=== PATIENT | male | born 1965 | race Caucasian/White ===

== ENCOUNTER 2017-08-28 04:58 | Inpatient (IN) | payer MEDICAID, OTHER ==
[2017-08-28] MEDS: LORAZEPAM 2 MG INJ IV ×8 (05:32→23:38)
[2017-08-28 05:37] LABS: ADD MAN DIFF? NO
[2017-08-28 05:40] LABS: WHITE BLOOD COUNT 12.1 10^3/ul (4.8-10.8)
[2017-08-28 05:40] LABS: BASOPHIL # 0.1 10^3/ul (0.0-0.1); BASOPHILS % 0.7 % (0.0-2.0); EOSINOPHILS % 0.2 % (0.0-7.0); HEMOGLOBIN 10.8 g/dl (14.0-18.0); LYMPHOCYTES # 0.8 10^3/ul (0.8-2.9); LYMPHOCYTES % 6.9 % (15.0-51.0); MEAN CORPUSCULAR HEMOGLOBIN 25.1 pg (29.0-33.0); MEAN CORPUSCULAR HGB CONC 32.7 g/dl (32.0-37.0); MEAN CORPUSCULAR VOLUME 76.7 fl (82.0-101.0); MEAN PLATELET VOLUME 9.1 fl (7.4-10.4); MONOCYTE # 1.3 10^3/ul (0.3-0.9); MONOCYTES % 10.5 % (0.0-11.0); NEUTROPHIL # 9.8 10^3/ul (1.6-7.5); NEUTROPHILS % 81.2 % (39.0-77.0); PLATELET COUNT 341 10^3/UL (140-415); RED CELL DISTRIBUTION WIDTH 17.1 % (11.5-14.5)
[2017-08-28 05:43] LABS: INR 0.96; PROTIME 12.9 Sec (11.9-14.9)
[2017-08-28 05:46] LABS: ALANINE AMINOTRANSFERASE 38 IU/L (13-69); ALBUMIN 5.3 g/dl (3.3-4.9); ALBUMIN/GLOBULIN RATIO 1.35; ALKALINE PHOSPHATASE 110 IU/L (42-121); ANION GAP 33 (8-16); ASPARTATE AMINO TRANSFERASE 100 IU/L (15-46); BILIRUBIN,INDIRECT 1.1 mg/dl (0-1.1); BILIRUBIN,TOTAL 1.1 mg/dl (0.2-1.3); BLOOD UREA NITROGEN 10 mg/dl (7-20); CALCIUM 10.2 mg/dl (8.4-10.2); CARBON DIOXIDE 18 mmol/L (21-31); CHLORIDE 95 mmol/L (97-110); CREATININE 1.35 mg/dl (0.61-1.24); GLUCOSE 214 mg/dl (70-220); POTASSIUM 3.1 mmol/L (3.5-5.1); SODIUM 143 mmol/L (135-144); TOTAL PROTEIN 9.2 g/dl (6.1-8.1)
[2017-08-28 05:49] LABS: ACETAMINOPHEN < 10.0 ug/ml (10.0-30.0); ETHANOL < 10.0 mg/dl; SALICYLATE < 1.0 mg/dl (5.0-30.0)
[2017-08-28 05:54] LABS: PARTIAL THROMBOPLASTIN TIME 26.6 Sec (25.0-35.0)
[2017-08-28] MEDS: MAGNESIUM SULFATE 2 GM, MULTIVITAMINS 10 ML, THIAMINE 100 MG, FOLIC ACID 1 MG in SOD CH... IV (06:07)
[2017-08-28] MEDS: CHLORDIAZEPOXIDE 25 MG CAP PO ×2 (08:50→21:26)
[2017-08-28] MEDS ORDERED: ACETAMINOPHEN 325 MG TAB PO (11:00)
[2017-08-28] MEDS ORDERED: NACL 0.9% 3 ML SYG IV (11:00)
[2017-08-28] MEDS ORDERED: ONDANSETRON 4 MG INJ IV (11:00)
[2017-08-28 11:19] LABS: CREATINE KINASE 288 IU/L (23-200)
[2017-08-28 11:28] LABS: CK INDEX 1.1
[2017-08-28 11:29] LABS: CK-MB 3.25 ng/ml (0.0-2.4)
[2017-08-28 11:43] LABS: TROPONIN-I 0.316 ng/ml (0.00-0.12)
[2017-08-28 12:15] LABS: ADD UMIC YES; UR ASCORBIC ACID NEGATIVE (NEGATIVE); UR BILIRUBIN (Dip) NEGATIVE (NEGATIVE); UR BLOOD (Dip) 1+ mg/dL (NEGATIVE); UR CLARITY SLIGHTLY CLOUDY (CLEAR); UR COLOR YELLOW (YELLOW); UR GLUCOSE (Dip) 1+ mg/dL (NEGATIVE); UR KETONES (Dip) NEGATIVE (NEGATIVE); UR LEUKOCYTE ESTERASE (Dip) NEGATIVE Leu/ul (NEGATIVE); UR MUCUS FEW /HPF (NONE SEEN); UR NITRITE (Dip) NEGATIVE (NEGATIVE); UR RBC 1 /HPF (0-5); UR SPECIFIC GRAVITY (Dip) 1.011 (1.003-1.030); UR TOTAL PROTEIN (Dip) 1+ mg/dl (NEGATIVE); UR UROBILINOGEN (Dip) 1+ mg/dL (NEGATIVE); UR WBC 2 /HPF (0-5)
[2017-08-28 12:30] LABS: AMPHETAMINE/METHAMPHETAMINE Positive (NEGATIVE); BARBITURATES Negative (NEGATIVE); BENZODIAZEPINES Negative (NEGATIVE); CANNABINOIDS Negative (NEGATIVE); COCAINE Negative (NEGATIVE); OPIATES Negative (NEGATIVE)
[2017-08-28] MEDS: POTASSIUM CHLORIDE (SR) 10 MEQ TAB PO (13:46)
[2017-08-28 17:41] LABS: ALANINE AMINOTRANSFERASE 35 IU/L (13-69); ALBUMIN 4.2 g/dl (3.3-4.9); ALKALINE PHOSPHATASE 84 IU/L (42-121); ASPARTATE AMINO TRANSFERASE 76 IU/L (15-46); BILIRUBIN,INDIRECT 1.1 mg/dl (0-1.1); BILIRUBIN,TOTAL 1.1 mg/dl (0.2-1.3); TOTAL PROTEIN 7.4 g/dl (6.1-8.1)
[2017-08-28 17:44] LABS: ANION GAP 16 (8-16); BLOOD UREA NITROGEN 7 mg/dl (7-20); CALCIUM 8.9 mg/dl (8.4-10.2); CARBON DIOXIDE 25 mmol/L (21-31); CHLORIDE 102 mmol/L (97-110); CREATININE 0.72 mg/dl (0.61-1.24); GLUCOSE 96 mg/dl (70-220); MAGNESIUM 1.9 mg/dl (1.7-2.5); POTASSIUM 3.2 mmol/L (3.5-5.1); SODIUM 140 mmol/L (135-144)
[2017-08-28 17:54] LABS: TROPONIN-I 0.173 ng/ml (0.00-0.12)
[2017-08-28] MEDS: THIAMINE 100 MG TAB PO (21:00)
[2017-08-29] MEDS: HALOPERIDOL 5 MG INJ IM (00:17)
[2017-08-29] MEDS: LORAZEPAM 2 MG INJ IV (00:18)
[2017-08-29] MEDS: DIPHENHYDRAMINE 50 MG INJ IM (00:18)
[2017-08-29] MEDS ORDERED: LORAZEPAM 2 MG INJ IV (02:00)
[2017-08-29] MEDS: ENOXAPARIN 40 MG/0.4 ML SYG SC (09:23)
[2017-08-29] MEDS: THIAMINE 100 MG TAB PO ×3 (09:23→20:51)
[2017-08-29] MEDS: FOLIC ACID 1 MG TAB PO (09:23)
[2017-08-29 11:35] LABS: ADD MAN DIFF? NO
[2017-08-29 11:36] LABS: BASOPHIL # 0.1 10^3/ul (0.0-0.1); BASOPHILS % 1.2 % (0.0-2.0); EOSINOPHILS # 0.5 10^3/ul (0.0-0.5); EOSINOPHILS % 10.4 % (0.0-7.0); HEMATOCRIT 30.6 % (42.0-52.0); LYMPHOCYTES # 0.7 10^3/ul (0.8-2.9); LYMPHOCYTES % 14.1 % (15.0-51.0); MEAN CORPUSCULAR HEMOGLOBIN 25.3 pg (29.0-33.0); MEAN CORPUSCULAR HGB CONC 32.7 g/dl (32.0-37.0); MEAN CORPUSCULAR VOLUME 77.3 fl (82.0-101.0); MEAN PLATELET VOLUME 9.2 fl (7.4-10.4); MONOCYTE # 0.6 10^3/ul (0.3-0.9); MONOCYTES % 11.6 % (0.0-11.0); NEUTROPHIL # 3.1 10^3/ul (1.6-7.5); NEUTROPHILS % 62.3 % (39.0-77.0); PLATELET COUNT 291 10^3/UL (140-415); RED BLOOD COUNT 3.96 10^6/ul (4.70-6.10); RED CELL DISTRIBUTION WIDTH 17.2 % (11.5-14.5)
[2017-08-29 11:55] LABS: IRON 39 ug/dl (35-150)
[2017-08-29 11:59] LABS: ALANINE AMINOTRANSFERASE 47 IU/L (13-69); ALBUMIN 4.2 g/dl (3.3-4.9); ALKALINE PHOSPHATASE 69 IU/L (42-121); ANION GAP 17 (8-16); ASPARTATE AMINO TRANSFERASE 104 IU/L (15-46); BILIRUBIN,INDIRECT 0.6 mg/dl (0-1.1); BILIRUBIN,TOTAL 0.6 mg/dl (0.2-1.3); BLOOD UREA NITROGEN 8 mg/dl (7-20); CALCIUM 9.2 mg/dl (8.4-10.2); CARBON DIOXIDE 26 mmol/L (21-31); CHLORIDE 101 mmol/L (97-110); CREATININE 0.73 mg/dl (0.61-1.24); GLUCOSE 104 mg/dl (70-220); SODIUM 141 mmol/L (135-144); TOTAL PROTEIN 7.2 g/dl (6.1-8.1)
[2017-08-29 12:02] LABS: POTASSIUM 2.9 mmol/L (3.5-5.1)
[2017-08-29 12:04] LABS: % IRON SATURATION 10 % SAT (22-52); TOTAL IRON BINDING CAPACITY 387 ug/dl (241-421)
[2017-08-29 13:32] LABS: FERRITIN 26.9 ng/ml (11.1-264.0)
[2017-08-29] MEDS: POTASSIUM CHLORIDE (SR) 20 MEQ TAB PO ×2 (13:54→20:51)
[2017-08-30] MEDS: POTASSIUM CHLORIDE (SR) 20 MEQ TAB PO ×2 (08:56→20:18)
[2017-08-30] MEDS: FOLIC ACID 1 MG TAB PO (08:56)
[2017-08-30] MEDS: ENOXAPARIN 40 MG/0.4 ML SYG SC (08:59)
[2017-08-30] MEDS: THIAMINE 100 MG TAB PO ×3 (10:39→20:18)
[2017-08-30] MEDS: ACETAMINOPHEN 325 MG TAB PO (11:56)
[2017-08-30] MEDS: MULTIVITAMINS 10 ML, THIAMINE 100 MG, FOLIC ACID 1 MG in SOD CHLORIDE 0.9% 1,000 ML IVPB (12:23)
[2017-08-30] MEDS: FAMOTIDINE 20 MG TAB PO (20:18)
[2017-08-31 05:46] LABS: ADD MAN DIFF? NO
[2017-08-31 05:48] LABS: WHITE BLOOD COUNT 5.5 10^3/ul (4.8-10.8)
[2017-08-31 05:48] LABS: BASOPHIL # 0.1 10^3/ul (0.0-0.1); BASOPHILS % 1.1 % (0.0-2.0); EOSINOPHILS # 0.7 10^3/ul (0.0-0.5); HEMATOCRIT 30.3 % (42.0-52.0); HEMOGLOBIN 9.8 g/dl (14.0-18.0); LYMPHOCYTES # 1.1 10^3/ul (0.8-2.9); LYMPHOCYTES % 19.6 % (15.0-51.0); MEAN CORPUSCULAR HEMOGLOBIN 25.3 pg (29.0-33.0); MEAN CORPUSCULAR HGB CONC 32.3 g/dl (32.0-37.0); MEAN CORPUSCULAR VOLUME 78.1 fl (82.0-101.0); MEAN PLATELET VOLUME 9.2 fl (7.4-10.4); MONOCYTES % 17.6 % (0.0-11.0); NEUTROPHIL # 2.7 10^3/ul (1.6-7.5); NEUTROPHILS % 48.3 % (39.0-77.0); PLATELET COUNT 332 10^3/UL (140-415); RED BLOOD COUNT 3.88 10^6/ul (4.70-6.10); RED CELL DISTRIBUTION WIDTH 17.8 % (11.5-14.5)
[2017-08-31 06:16] LABS: HEMOGLOBIN A1C 5.3 % (0-5.9)
[2017-08-31 06:29] LABS: ANION GAP 15 (8-16); BLOOD UREA NITROGEN 10 mg/dl (7-20); CALCIUM 9.3 mg/dl (8.4-10.2); CARBON DIOXIDE 25 mmol/L (21-31); CHLORIDE 104 mmol/L (97-110); CREATININE 0.86 mg/dl (0.61-1.24); GLUCOSE 94 mg/dl (70-220); MAGNESIUM 1.1 mg/dl (1.7-2.5); PHOSPHORUS 4.3 mg/dl (2.5-4.9); POTASSIUM 4.5 mmol/L (3.5-5.1); SODIUM 139 mmol/L (135-144)
[2017-08-31] MEDS: POTASSIUM CHLORIDE (SR) 20 MEQ TAB PO ×2 (09:05→20:33)
[2017-08-31] MEDS: FOLIC ACID 1 MG TAB PO (09:05)
[2017-08-31] MEDS: THIAMINE 100 MG TAB PO ×2 (09:05→12:43)
[2017-08-31] MEDS: MULTIVITAMINS 10 ML, THIAMINE 100 MG, FOLIC ACID 1 MG in SOD CHLORIDE 0.9% 1,000 ML IVPB (09:06)
[2017-08-31] MEDS: ENOXAPARIN 40 MG/0.4 ML SYG SC (09:06)
[2017-08-31] MEDS: MAGNESIUM SULFATE 3 GM in DEXTROSE 5% 100 ML IVPB (12:44)
[2017-08-31] MEDS: ACETAMINOPHEN 325 MG TAB PO (12:55)
[2017-08-31] MEDS: MAGNESIUM OXIDE 400 MG TAB PO ×2 (16:30→20:34)
[2017-08-31] MEDS: FAMOTIDINE 20 MG TAB PO (20:33)
[2017-09-01] MEDS: THIAMINE 100 MG TAB PO (08:53)
[2017-09-01] MEDS: POTASSIUM CHLORIDE (SR) 20 MEQ TAB PO (08:53)
[2017-09-01] MEDS: FOLIC ACID 1 MG TAB PO (08:53)
[2017-09-01] MEDS: MAGNESIUM OXIDE 400 MG TAB PO (08:54)
[2017-09-01] MEDS: ENOXAPARIN 40 MG/0.4 ML SYG SC (08:57)
== END 2017-09-01 18:35 | disposition home or self-care (01) | DRG 70 ==
LOC: E/R 04:58 → MS2 08-30 18:13 → MS4 10:39
DX: G93.49 Other encephalopathy (principal); I21.4 Non-ST elevation (NSTEMI) myocardial infarction; F10.239 Alcohol dependence with withdrawal, unspecified; D50.9 Iron deficiency anemia, unspecified; E87.6 Hypokalemia
CPT/HCPCS: 36415; 70450; 71045; 80048; 80053; 80076; 80306; 80307; 81001; 82306; 82550; 82553; 82728; 83036; 83540; 83735; 84100; 84443; 84484; 85025; 85610; 85730; 93005; 93306; 96374; 96375; 96376; 97161; 99291-25

== ENCOUNTER 2018-02-09 16:41 | Inpatient (IN) | payer MEDICAID, OTHER ==
[2018-02-09 17:06] LABS: ADD MAN DIFF? NO
[2018-02-09 17:13] LABS: ABNORMAL IP MESSAGE 1; BASOPHILS % 0.5 % (0.0-2.0); EOSINOPHILS % 0.4 % (0.0-7.0); HEMATOCRIT 29.6 % (42.0-52.0); HEMOGLOBIN 8.8 g/dl (14.0-18.0); LYMPHOCYTES % 13.7 % (15.0-51.0); MEAN CORPUSCULAR HEMOGLOBIN 20.1 pg (29.0-33.0); MEAN CORPUSCULAR HGB CONC 29.7 g/dl (32.0-37.0); MEAN CORPUSCULAR VOLUME 67.6 fl (82.0-101.0); MEAN PLATELET VOLUME 9.9 fl (7.4-10.4); MONOCYTE # 0.7 10^3/ul (0.3-0.9); MONOCYTES % 9.7 % (0.0-11.0); NEUTROPHIL # 5.7 10^3/ul (1.6-7.5); NEUTROPHILS % 75.2 % (39.0-77.0); PLATELET COUNT 150 10^3/UL (140-415); POSITIVE DIFF @See below; RED BLOOD COUNT 4.38 10^6/ul (4.70-6.10)
[2018-02-09 17:13] LABS: WHITE BLOOD COUNT 7.6 10^3/ul (4.8-10.8)
[2018-02-09 17:32] LABS: ANION GAP 28 (8-16); BLOOD UREA NITROGEN 20 mg/dl (7-20); CALCIUM 10.3 mg/dl (8.4-10.2); CARBON DIOXIDE 33 mmol/L (21-31); CHLORIDE 78 mmol/L (97-110); CREATININE 2.17 mg/dl (0.61-1.24); GLUCOSE 211 mg/dl (70-220); SODIUM 137 mmol/L (135-144)
[2018-02-09 17:38] LABS: POTASSIUM 2.2 mmol/L (3.5-5.1)
[2018-02-09 17:43] LABS: PROTIME 12.2 Sec (11.9-14.9); TROPONIN-I < 0.012 ng/ml (0.000-0.120)
[2018-02-09] MEDS: SOD CHLORIDE 0.9% 1,000 ML IV (17:53)
[2018-02-09 18:06] LABS: ALANINE AMINOTRANSFERASE 56 IU/L (13-69); ALBUMIN 4.5 g/dl (3.3-4.9); ALKALINE PHOSPHATASE 149 IU/L (42-121); ASPARTATE AMINO TRANSFERASE 255 IU/L (15-46); BILIRUBIN,INDIRECT 0.9 mg/dl (0-1.1); BILIRUBIN,TOTAL 0.9 mg/dl (0.2-1.3)
[2018-02-09 18:08] LABS: ETHANOL < 10.0 mg/dl
[2018-02-09] MEDS: POTASSIUM CHLORIDE 20 MEQ POWDER FOR ORAL SOLN PO (18:24)
[2018-02-09] MEDS: POTASSIUM CHLORIDE 50 ML IVPB ×3 (18:44→23:16)
[2018-02-09] MEDS ORDERED: ACETAMINOPHEN 325 MG TAB PO (19:00)
[2018-02-09] MEDS ORDERED: ONDANSETRON 4 MG INJ IV (19:00)
[2018-02-09] MEDS ORDERED: HYDROCODONE/APAP (5/325) TAB PO (19:30)
[2018-02-09] MEDS ORDERED: NACL 0.9% 3 ML SYG IV (19:30)
[2018-02-09 20:02] LABS: IRON 40 ug/dl (35-150)
[2018-02-09 20:03] LABS: MAGNESIUM 1.6 mg/dl (1.7-2.5)
[2018-02-09 20:11] LABS: % IRON SATURATION 10 % SAT (22-52); TOTAL IRON BINDING CAPACITY 382 ug/dl (241-421)
[2018-02-09 20:38] LABS: FERRITIN 29.2 ng/ml (11.1-264.0)
[2018-02-09 21:31] LABS: ANION GAP 11 (8-16); BLOOD UREA NITROGEN 18 mg/dl (7-20); CALCIUM 8.8 mg/dl (8.4-10.2); CARBON DIOXIDE 37 mmol/L (21-31); CHLORIDE 92 mmol/L (97-110); CREATININE 1.42 mg/dl (0.61-1.24); GLUCOSE 100 mg/dl (70-220); POTASSIUM 3.5 mmol/L (3.5-5.1); SODIUM 136 mmol/L (135-144)
[2018-02-09 21:42] LABS: TROPONIN-I < 0.012 ng/ml (0.000-0.120)
[2018-02-09] MEDS: NS + KCL 20 MEQ 1,000 ML IV (23:15)
[2018-02-09] MEDS: LORAZEPAM 2 MG INJ IV (23:15)
[2018-02-09] MEDS: THIAMINE 100 MG TAB PO (23:16)
[2018-02-09] MEDS: CHLORDIAZEPOXIDE 25 MG CAP PO (23:16)
[2018-02-10] MEDS: MAGNESIUM SULFATE 2 GM/50 ML 50 ML IVPB (03:02)
[2018-02-10] MEDS ORDERED: LORAZEPAM 2 MG INJ IV (06:00)
[2018-02-10 06:10] LABS: ADD MAN DIFF? NO; HAAIG REFLEX REFLEX FILED
[2018-02-10 06:22] LABS: WHITE BLOOD COUNT 5.2 10^3/ul (4.8-10.8)
[2018-02-10 06:22] LABS: ABNORMAL IP MESSAGE 1; BASOPHIL # 0.1 10^3/ul (0.0-0.1); EOSINOPHILS # 0.3 10^3/ul (0.0-0.5); HEMATOCRIT 24.9 % (42.0-52.0); HEMOGLOBIN 7.5 g/dl (14.0-18.0); LYMPHOCYTES # 0.9 10^3/ul (0.8-2.9); MEAN CORPUSCULAR HEMOGLOBIN 20.3 pg (29.0-33.0); MEAN CORPUSCULAR HGB CONC 30.1 g/dl (32.0-37.0); MEAN CORPUSCULAR VOLUME 67.3 fl (82.0-101.0); MEAN PLATELET VOLUME 9.8 fl (7.4-10.4); MONOCYTE # 0.7 10^3/ul (0.3-0.9); MONOCYTES % 12.6 % (0.0-11.0); NEUTROPHIL # 3.4 10^3/ul (1.6-7.5); PLATELET COUNT 138 10^3/UL (140-415); POSITIVE DIFF @See below; RED CELL DISTRIBUTION WIDTH 23.9 % (11.5-14.5)
[2018-02-10 06:39] LABS: MAGNESIUM 2.6 mg/dl (1.7-2.5)
[2018-02-10 06:56] LABS: PHOSPHORUS 2.1 mg/dl (2.5-4.9)
[2018-02-10 06:56] LABS: ALANINE AMINOTRANSFERASE 57 IU/L (13-69); ALBUMIN/GLOBULIN RATIO 1.03; ALKALINE PHOSPHATASE 137 IU/L (42-121); ANION GAP 9 (8-16); ASPARTATE AMINO TRANSFERASE 232 IU/L (15-46); BILIRUBIN,INDIRECT 0.6 mg/dl (0-1.1); BILIRUBIN,TOTAL 0.6 mg/dl (0.2-1.3); BLOOD UREA NITROGEN 13 mg/dl (7-20); CALCIUM 8.2 mg/dl (8.4-10.2); CARBON DIOXIDE 32 mmol/L (21-31); CHLORIDE 97 mmol/L (97-110); CREATININE 0.97 mg/dl (0.61-1.24); GLUCOSE 113 mg/dl (70-220); POTASSIUM 3.2 mmol/L (3.5-5.1); SODIUM 135 mmol/L (135-144); TOTAL PROTEIN 5.9 g/dl (6.1-8.1)
[2018-02-10 07:12] LABS: HEPATITIS B SURFACE ANTIGEN NEGATIVE (NEGATIVE)
[2018-02-10 07:20] LABS: HEMOGLOBIN A1C 5.6 % (0-5.9)
[2018-02-10 07:29] LABS: HEPATITIS B CORE ANTIBODY NEGATIVE (NEGATIVE); HEPATITIS C VIRAL ANTIBODY NEGATIVE (NEGATIVE); HIV 1&2 ANTIBODY NEGATIVE (NEGATIVE)
[2018-02-10] MEDS: MULTIVITAMINS 30 ML CUP GTB (09:57)
[2018-02-10] MEDS: THIAMINE 100 MG TAB PO ×3 (09:58→21:47)
[2018-02-10] MEDS: POTASSIUM CHLORIDE (SR) 20 MEQ TAB PO (09:58)
[2018-02-10] MEDS: NS + KCL 20 MEQ 1,000 ML IV ×2 (09:58→20:12)
[2018-02-10] MEDS: POTASSIUM CHLORIDE 100 ML IVPB ×2 (12:29→14:42)
[2018-02-10] MEDS: BISACODYL (EC) 5 MG TAB PO (14:06)
[2018-02-10 14:41] LABS: ANION GAP 11 (8-16); BLOOD UREA NITROGEN 10 mg/dl (7-20); CALCIUM 8.3 mg/dl (8.4-10.2); CARBON DIOXIDE 34 mmol/L (21-31); CHLORIDE 94 mmol/L (97-110); CREATININE 0.76 mg/dl (0.61-1.24); GLUCOSE 111 mg/dl (70-220); POTASSIUM 3.6 mmol/L (3.5-5.1); SODIUM 135 mmol/L (135-144)
[2018-02-10] MEDS: POLYETHYLENE GLYCOL 3350 119 GM POWDER PO (18:45)
[2018-02-10] MEDS: MAGNESIUM CITRATE 300 ML BTL PO (18:46)
[2018-02-10] MEDS: SOD FERRIC GLUC COMPLX 125 MG in SOD CHLORIDE 0.9% 100 ML IVPB (18:46)
[2018-02-10] MEDS: CHLORDIAZEPOXIDE 25 MG CAP PO (21:47)
[2018-02-11] MEDS: NS + KCL 20 MEQ 1,000 ML IV ×2 (00:31→21:12)
[2018-02-11] MEDS: POLYETHYLENE GLYCOL 3350 119 GM POWDER PO (05:20)
[2018-02-11] MEDS: BISACODYL (EC) 5 MG TAB PO (07:11)
[2018-02-11 08:04] LABS: ANION GAP 11 (8-16); BLOOD UREA NITROGEN 7 mg/dl (7-20); CALCIUM 8.3 mg/dl (8.4-10.2); CARBON DIOXIDE 28 mmol/L (21-31); CHLORIDE 100 mmol/L (97-110); CREATININE 0.63 mg/dl (0.61-1.24); GLUCOSE 99 mg/dl (70-220); POTASSIUM 3.7 mmol/L (3.5-5.1); SODIUM 135 mmol/L (135-144)
[2018-02-11] MEDS: MULTIVITAMINS 30 ML CUP GTB (09:00)
[2018-02-11] MEDS: THIAMINE 100 MG TAB PO ×3 (09:00→21:11)
[2018-02-11] MEDS: MIDAZOLAM 1 MG/ML 2 ML INJ (13:43)
[2018-02-11] MEDS: SOD FERRIC GLUC COMPLX 125 MG in SOD CHLORIDE 0.9% 100 ML IVPB (17:00)
[2018-02-11] MEDS: CHLORDIAZEPOXIDE 25 MG CAP PO (21:11)
[2018-02-12] MEDS: THIAMINE 100 MG TAB PO ×2 (08:08→13:32)
[2018-02-12] MEDS: MULTIVITAMINS 30 ML CUP GTB (08:08)
[2018-02-12] MEDS: NS + KCL 20 MEQ 1,000 ML IV (13:32)
[2018-02-12] MEDS: SOD FERRIC GLUC COMPLX 125 MG in SOD CHLORIDE 0.9% 100 ML IVPB (16:13)
== END 2018-02-12 18:08 | disposition home or self-care (01) | DRG 683 ==
LOC: TEL 21:08 → E/R 16:41 → TEL 18:39
PROVIDERS: Internal Medicine
PROC: 0DJD8ZZ Inspection of Lower Intestinal Tract, Via Natural or Artificial Opening Endoscopic (ICD-10-PCS; principal; 2018-02-11 13:00)
PROC: 0DB48ZX Excision of Esophagogastric Junction, Via Natural or Artificial Opening Endoscopic, Diagnostic (ICD-10-PCS; 2018-02-11 13:00)
PROC: 0DB38ZX Excision of Lower Esophagus, Via Natural or Artificial Opening Endoscopic, Diagnostic (ICD-10-PCS; 2018-02-11 13:00)
DX: N17.9 Acute kidney failure, unspecified (principal); F10.239 Alcohol dependence with withdrawal, unspecified; E87.3 Alkalosis; E87.6 Hypokalemia; R55 Syncope and collapse; E86.0 Dehydration; D50.9 Iron deficiency anemia, unspecified; K20.9 Esophagitis, unspecified; K57.30 Diverticulosis of large intestine without perforation or abscess without bleeding; K64.8 Other hemorrhoids; F10.20 Alcohol dependence, uncomplicated; K70.10 Alcoholic hepatitis without ascites; D69.6 Thrombocytopenia, unspecified; R56.9 Unspecified convulsions
CPT/HCPCS: 36415; 70450; 71045; 76705; 80048; 80053; 80076; 80307; 82728; 83036; 83540; 83735; 84100; 84484; 85025; 85610; 86703; 86704; 86709; 86803; 87340; 88305; 88312; 88313; 93005; 97161; 99285-25